=== PATIENT | female | born 1995 | race Hispanic/Latino ===

== ENCOUNTER 2022-03-22 09:27 | Outpatient (CLI) | payer OTHER | END 2022-03-22 09:28 | disposition home or self-care (01) | LOC: BICULT 09:27 | PROVIDERS: ATTEND Nurse Practitioner | DX: Z34.02 Encounter for supervision of normal first pregnancy, second trimester (principal); Z3A.20 20 weeks gestation of pregnancy | CPT/HCPCS: 76805 ==

== ENCOUNTER 2022-09-05 10:01 | Emergency (ER) | payer OTHER ==
[2022-09-05] MEDS ORDERED: Ibuprofen 200 MG TAB ONE (10:42)
[2022-09-05] MEDS ORDERED: Acetaminophen 325 MG TAB ONE (10:42)
== END 2022-09-05 11:58 | disposition home or self-care (01) ==
LOC: ERS 10:01
DX: M54.50 Low back pain, unspecified (principal); M54.6 Pain in thoracic spine; Y04.2XXA Assault by strike against or bumped into by another person, initial encounter
CPT/HCPCS: 99283